=== PATIENT | female | born 1940 | race Caucasian/White ===

== ENCOUNTER 2017-01-07 06:50 | Inpatient (IN) | payer MEDICARE ==
[2017-01-07] VITALS (9 sets, daily range): BP systolic 70–122; BP diastolic 34–78; PULSE 20–135; RESP 2–41; O2SAT 80–100
[~2017-01-07] VITALS: Ht 160 cm; Wt 56.6 kg
--- NOTE | 2017-01-07 07:02 | ED.REPORT ---
HPI-Altered Mental Status Date of Service Jan 07, 2017 ED Provider: Brian Ferguson MD 76 year old female with a history of diabetes, narcotic withdrawal, and AL presents to the ER via EMS due to decreased level of consciousness. GCS of 3 upon EMS arrival at the patient's residence. Medics intubated in the field. EMS report that the patient lives with her who is a poor director of community center; he reports she has been like this for 8 hours. Per medics, patient has vomited and aspirated, and is incontinent of urine. HR 135-140, O2 sat high 80's-low 90's, and hypotensive en route. Full code, no advance directive. Nursing Notes Stated Complaint: DECREASE LOC Nursing Notes Reviewed: Yes Allergies: Coded Allergies: Sulfa (Sulfonamide Antibiotics) (Verified Allergy, Unknown, 01/07/17) baclofen (Verified Allergy, Unknown, 01/07/17) codeine (Verified Allergy, Unknown, 01/07/17) gabapentin (Verified Allergy, Unknown, 01/07/17) pregabalin (Verified Allergy, Unknown, 01/07/17) Scheduled Divalproex (Divalproex) 125 Mg Tablet.dr 125 MG PO DAILY Swallowed whole without chewing to avoid local irritation of the mouth and throat. Insulin Glargine (Lantus U100 Insulin Vial) 100 Unit/Ml Vial Unknown Dose SUBQ HS Lisinopril (Lisinopril) 40 Mg Tablet 40 MG PO DAILY Nortriptyline (Nortriptyline) 10 Mg Capsule 10 MG PO BID Sertraline HCl (Sertraline) 100 Mg Tablet 100 MG PO BID Scheduled PRN Hydrocodone-Acetaminophen 10-300 mg (Hydrocodone-Acetaminophen 10-300 mg) 1 Each Tablet Unknown Dose PO Q4H PRN PRN For Pain Hydroxyzine Pamoate (HydrOXYzine Pamoate) 50 Mg Capsule 50 MG PO HS PRN PRN For Insomnia General Time Seen by MD: 07:01 Chief Complaint Decreased responsiveness Hx Obtained From: EMS Arrived By: Ambulance Sudden in Onset?: No Onset Occurred: 5 - 8 hours ago (8) Symptom Duration: Since onset Progression since Onset: Unchanged Related History: Reports Diabetes mellitus Risk Factors [place] Coma Score > Age 5 Eye Opening: No response (1) Verbal Response: No response (1) Motor Response: No response (1) [place] Coma Score: 3 Past Medical History Past Medical History denies history of CVA Narcotic withdrawal AL Reports: Diabetes mellitus, Hypertension Past Surgical History Open heart surgery 1994 Reports: CABG Smoking History Unknown if Ever Smoker Social History Other Social History: Unable to Obtain History Past medical history Review of Systems Unable to Obtain ROS Intubated Physical Exam Initial Vital Signs Vital Signs (First) Date Time Temp Pulse Resp B/P Pulse Ox O2 Delivery O2 Flow Rate FiO2 01/07/17 07:06 36.8 127 20 121/76 95 Mechanical Ventilator Initial VS: Reviewed General/Constitutional: Well developed Alertness: Positive: Unresponsive Head / Eyes: Atraumatic, Normocephalic Pupils: Positive: Dilated L (fixed), Dilated R (fixed) Neck: No JVD, No tracheal deviation Respiratory / Chest: No chest wall deformity lungs coarse bilateral, intubated, equal Mental Status: Positive: Unresponsive GCS 3 Abdomen: Atraumatic, No guarding, No rebound Back: Atraumatic, Inspection NL, Non-tender, No CVA tenderness No stepoffs Ankle / Foot: Neurologic intact, Vascular intact 1cm chronic ulcer left heel Rectum / Perineum: Blood - occult heme - Rectal for Blood: Negative: Blood, grossly present Interpretation & Diagnostics Lab Results Interpretation Result Diagram: 01/07/17 0710 01/07/17 0710 Test 01/07/17 07:10 01/07/17 07:44 White Blood Count 17.3th/mm3 (3.8-10.1) Red Blood Count 2.90mil/mm3 (3.90-5.20) Hemoglobin 8.5g/dL (12.0-15.6) Hematocrit 28.8% (35.0-46.0) Mean Corpuscular Volume 99.3fL (81-100) Mean Corpuscular Hemoglobin 29.3pg (27.0-35.0) Mean Corpuscular Hemoglobin Concent 29.5% (32.0-37.0) Red Cell Distribution Width 16.1% (12.3-15.4) Platelet Count 366bil/L (150-400) Neutrophils (%) (Auto) 89.7% (40-74) Lymphocytes (%) (Auto) 5.3% (14-46) Monocytes (%) (Auto) 4.3% (4-12) Eosinophils (%) (Auto) 0% (0-5) Basophils (%) (Auto) 0.1% (0-3) Sodium Level 142mEq/L (134-144) Potassium Level 5.1mEq/L (3.5-5.2) Chloride Level 105mEq/L (97-108) Carbon Dioxide Level 18mmol/L (18-29) Blood Urea Nitrogen 27mg/dL (8-27) Creatinine 1.36mg/dL (0.57-1.00) Estimat Glomerular Filtration Rate 54mL/min (>59) Glucose Level 106mg/dL (60-99) Lactic Acid Level 2.5mmol/L (0.4-2.0) Calcium Level 7.8mg/dL (8.5-10.1) Magnesium Level 2.1mg/dL (1.6-2.6) Total Bilirubin 0.2mg/dL (0.0-1.2) Aspartate Amino Transf (AST/SGOT) 48U/L (0-50) Alanine Aminotransferase (ALT/SGPT) 17U/L (0-32) Alkaline Phosphatase 72U/L (25-165) Troponin T 0.707ug/L (0.0-0.011) Total Protein 5.8g/dL (6.4-8.4) Albumin 3.1g/dL (3.4-5.0) Salicylates Level < 3.0ug/mL (30-250) Acetaminophen Level < 15.0ug/mL Rx (10-25) Alcohol, Quantitative < 10mg/dL (0-10) Urine Color Straw (YELLOW) Urine Appearance Slightly cloudy Urine pH 7.0 (5.0-8.0) Urine Specific [place] 1.020 (1.003-1.035) Urine Protein Tracemg/dL (NEG,TRACE) Urine Glucose (UA) Negativemg/dL (NEGATIVE) Urine Ketones 15mg/dL (NEGATIVE) Urine Occult Blood Trace (NEGATIVE) Urine Nitrite Positive (NEGATIVE) Urine Bilirubin Negative (NEGATIVE) Urine Urobilinogen Normalmg/dL (NORMAL) Urine Leukocyte Esterase Large (NEGATIVE) Urine RBC 3-10/hpf (0-2) Urine WBC >50/hpf (0-5) Urine Epithelial Cells Occasional/hpf (NONE-MOD) Urine Crystals None seen (NONE SEEN) Urine Bacteria Many/hpf (NONE-FEW) Urine Hyaline Casts None/lpf (NONE) Urine Granular Casts None seen (NONE SEEN) Urine Waxy Casts None seen (NONE SEEN) Urine Red Blood Cell Casts None seen (NONE SEEN) Urine White Blood Cell Casts None seen (NONE SEEN) Urine Mucus None seen (None Seen) Urine Trichomonas None seen (NONE SEEN) Urine Yeast None (NONE SEEN) Urinalysis Comment None Urine Culture Reflexed Indicated ECG Interpretation ECG Interpretation: sinus tachycardia, rate 130 st depression less than 1mm isolated to v1 Time: 07:25 Interpreted by: ED physician ABG Interpretation ABG Interpretation: pH 7.289 pCO2 44 pO2 116.0 cHCO3 (P) 20.4 cBase (B) -5.3 X-Ray Chest Interpretation Chest Xray Interpretation: IMPRESSION: Asymmetric interstitial radiodensities within the left lung which could be related to atypical pneumonia or asymmetric pulmonary edema. Recommend clinical correlation. Dictated by: Tres Quintana RRA Interpreted: Summer Ssoa MD on 01/07/2017 at 9:08 Transcribed by: KENDALL on 01/07/2017 at 9:09 View: Portable, 1 view Interpretation / Wet Read by: Interpret - Radiologist CT Head Interpretation IMPRESSION: 1. No definite acute intracranial abnormality. 2. Moderate cerebral volume loss and chronic white matter small vessel ischemic changes. Dictated by: William Britt M.D. on 01/07/2017 at 8:12 Approved by: William Britt M.D. on 01/07/2017 at 8:14 Study: Head CT no contrast Interpretation / Wet Read by: Interpret - Radiologist CT C-Spine Interpretation IMPRESSION: 1. No fracture or dislocation. 2. Degenerative disc disease, uncovertebral hypertrophy and facet arthropathy in cervical spine. There is moderate central canal stenosis at C5-C6. 3. Small left pleural effusion. 4. Bilateral apical infiltrate or scarring. 5. Severe atherosclerosis. Dictated by: Summer Sosa M.D. on 01/07/2017 at 9:04 Approved by: Summer Sosa M.D. on 01/07/2017 at 9:12 Study type: CT no contrast Interpretation / Wet Read by: Interpret - Radiologist Procedures Central Line Placement Time: 09:49 Procedure Performed by: ED physician Consent / Setup / Site Prep: Informed consent provided, No consent - emergent, Time-out performed, Needle aspirate performed, Oxygen administered, Pulse oximeter applied, school lunch monitor applied, Hand hygiene observed, Standard surgical scrub, Max barrier precaution, Sterile drapes applied, Position supine Skin Preparation Agent: Hibiclens - Chlorhexidine Side / Location / Ultrasound: Internal jugular right, Ultrasound assisted Catheter / Lumen / Technique: Triple lumen, Seldinger technique, Good blood return, Secured w catheter device Central Line Tip Location: Cath tip good position in the SVC Post-Procedure / Complications: Tolerated procedure well, Patient stable Re-Eval/Medical Decision Med Decision/Clinical Course 76-year-old female history of narcotic withdrawal, DM, AL, CABG presenting with altered mental status 8 hours per . Minimal history available. Patient was intubated in the field for low GCS. CT head no acute pathology. CT C-spine pathology. Lactate is 2.5. White blood cell count elevated. Urine positive nitrites and leukocytes. Chest x-ray possible left-sided infiltrate. Troponins 0.7. Atrial flutter 130s. Patient was given 3 L normal saline and her maps dropped below 65 therefore I put in a central line. She will be admitted to the ICU for altered mental status, elevated troponins, sepsis with urinary and cannot rule out aspiration pneumonia source. Given Vancomycin, Levaquin, Zosyn. She was given 30 mL/kg fluid bolus. She was started on levophed for blood pressure support. Discussed with hospitalist Dr. Pride who will trend troponins and did not recommend heparin drip. Given aspirin for elevated troponins. Possibly demand ischemia given tachycardia though cannot rule out NSTEMI. We will defer further imaging possible MRI to hospitalist team. Cooling measures were discussed given low GCS Dr. Aceves pulmonary recommend no cooling measures at this time. Source of Hx: Old records Re-Evaluation/Progress : Time of Eval: 08:04 Re-Evaluation/Progress Note: Completed rectal exam. Consultation #1: Referral / Consult Name: Michael Pride MD Consulted With: Hospitalist Call Returned at: 08:47 Customer Service Sales Consultant: Agrees with eval, Agrees with plan, Accepts admit Consultation #2: Call Returned at: 09:06 Note: Discussed patient case with her . Counseled Regarding: Diagnosis, Lab results, Need for admission Patient Discharge & Departure Impression: Primary Impression: Altered mental status Additional Impressions: Sepsis Aspiration pneumonia Pyelonephritis Elevated troponin Disposition: ADMITTED TO HOSPITAL Discharge Condition All VS Reviewed: Yes Condition: Critical Crit Care Except Billable Proc Time Spent: 105-134 minutes Services Performed: Patient management by me, Time spent at bedside, Reviewing test results, Reviewing imaging, Discussing patient care, Documentation in record Scribe Attestation Portions of this note were transcribed by Marina Griffin and Luis Angel Damico. I, Dr. Ferguson personally performed the history, physical exam and medical decision-making; I reviewed and confirmed the accuracy of the information in the transcribed note. Signed by: Xavi Green, 01/07/2017 and 10:19 Brian Ferguson MD Jan 07, 2017 07:01 MARINA GRIFFIN Jan 07, 2017 07:14 Luis Angel Damico Jan 07, 2017 07:28
[2017-01-07] MEDS ORDERED: 0.9% Sodium Chloride 1,000 ML IV ONE ×3 (07:19→08:35)
[2017-01-07 07:34] LABS: BASOPHILS % (AUTO) 0.1 % (0-3); EOSINOPHILS % (AUTO) 0 % (0-5); MONOCYTES % (AUTO) 4.3 % (4-12); Mean Corpuscular Hemoglobin 29.3 pg (27.0-35.0); Mean Corpuscular Volume 99.3 fL (81-100); NEUTROPHILS % (AUTO) 89.7 % (40-74); Platelet Count 366 bil/L (150-400)
[2017-01-07] MEDS ORDERED: LISI40TA PO (08:02)
[2017-01-07] MEDS ORDERED: DIVA125T3 PO (08:02)
[2017-01-07] MEDS ORDERED: SERT100T9 PO (08:02)
[2017-01-07] MEDS ORDERED: NORT10CA PO (08:02)
[2017-01-07] MEDS ORDERED: HYDR50CA3 PO (08:02)
[2017-01-07] MEDS ORDERED: HYDR-3089 PO (08:02)
[2017-01-07] MEDS ORDERED: INSU100V7 SUBQ (08:02)
[2017-01-07 08:12] LABS: Magnesium 2.1 mg/dL (1.6-2.6)
--- NOTE | 2017-01-07 08:16 | DRSVH ---
PROCEDURE: CT BRAIN WITHOUT CONTRAST ([id number]) INDICATIONS: dec LOC TECHNIQUE: Noncontrast 4.5 mm thick angled axial sections acquired from the foramen magnum to the vertex, with c oronal reformats. COMPARISON: None. FINDINGS: Image quality: There is mild motion artifact. CSF spaces: Basal cisterns are patent. No extra-axial fluid collections. The ventricles are symmet waldo in size and shape. There is moderate cerebral volume loss, with resultant ventricular and sulcal prominence. Brain: No intracranial hemorrhage, mass, or mass effect. There are subcortical, periventricular and deep white matter hypodensities consistent with moderate chronic small vessel ischemic changes. The re is intracranial internal carotid artery atherosclerosis. Skull and face: Calvarium and visualized facial bones appear intact, without suspicious lesions. Sinuses: Visualized sinuses and mastoids are clear. IMPRESSION: 1. No definite acute intracranial abnormality. 2. Moderate cerebral volume loss and chronic white matter small vessel ischemic changes. Dictated by: William Britt M.D. on 01/07/2017 at 8:12 Approved by: William Britt M.D. on 01/07/2017 at 8:14
[2017-01-07 08:29] LABS: APPEARANCE,URINE SLIGHTLY CLOUDY (CLEAR,HAZY); COLOR,URINE STRAW (YELLOW)
[2017-01-07 08:30] LABS: OCCULT BLOOD,URINE TRACE (NEGATIVE); UROBILINOGEN,URINE NORMAL (NORMAL)
[2017-01-07] MEDS ORDERED: Piperacillin-Tazo 3.375 Gm Inj 3.375 GM in Dextrose 5% Minibag Plus 50 ML IV ONE (08:35)
[2017-01-07] MEDS ORDERED: Vancomycin Dose per Pharmacist XX ONE ×2 (08:35→10:25)
[2017-01-07] MEDS ORDERED: levoFLOXacin Inj 750 MG in IV Premix 1 EACH IV ONE (08:35)
--- NOTE | 2017-01-07 08:39 | ABG ---
DateTimeAnalyzed 08:32:00 -_ pH ____7.289 - 7.350 7.450 pCO2 ___44.0__ -mmHg 35.0 45.0 pO2 116 -mmHg 69.0 116 HCO3- ___20.4__ -mmol/L 22.0 26.0 ABE ___-5.3__ -mmol/L -2.0 2.0 tHb ____8.4__ -g/dL O2Hb ___95.6__ -% COHb ____1.1__ -% MetHb ____1.1__ -% sO2 ___97.8__ -% FIO2 __100.0__ -% Pressure_Support ___10.0__ -cmH2O PEEP ____5.0__ -cmH2O Set_RR ___18.0__ -b/min Vt __450.0__ -L Drawn By kbb - Date/Time Notified____ 08:39:00 -_ Spontaneous_RR ___24.0__ -b/min Oxygen Device 1 VENTILATOR - Notified By kbb - Notified Whom nelson-genao, Brian MD - B 749 -mmHg tO2 ___11.5__ -Vol%
[2017-01-07] MEDS ORDERED: Ondansetron 2 mg/mL 2 mL Inj IVPUSH PRN ×2 (08:50→10:25)
[2017-01-07] MEDS ORDERED: Alum-Mag Hydrox-Simeth 30 mL Suspension PO PRN (08:50)
--- NOTE | 2017-01-07 09:09 | DRSVH ---
PROCEDURE: X-RAY CHEST ONE VIEW, PORTABLE ([id number]) INDICATIONS: altered mental status TECHNIQUE: One view of the chest was acquired. COMPARISON: None. FINDINGS: Surgical changes and devices: Is median sternotomy. Right quadrant surgical clips. Lungs and pleura: Asymmetric radiodensity seen throughout the left lung and the right was clear. No pleural effusion or pneumothorax. Mediastinum: Mediastinal contours appear normal. Heart size is normal. Bones and chest wall: No suspicious bony lesions. Overlying soft tissues appear unremarkable. IMPRESSION: Asymmetric interstitial radiodensities within the left lung which could be related to aty pical pneumonia or asymmetric pulmonary edema. Recommend clinical correlation. Dictated by: Tres NOVAK Interpreted: Summer Sosa MD on 01/07/2017 at 9:08 Transcribed by: KENDALL on 01/07/2017 at 9:09 Approved by: Summer Sosa M.D. on 01/07/2017 at 19:03
[2017-01-07] MEDS ORDERED: Vancomycin Inj 1,000 MG in IV Premix 1 EACH IV ONE (09:10)
--- NOTE | 2017-01-07 09:11 | PCM.CONPHA ---
Subjective Date of Service: Jan 07, 2017 Requesting Provider: Brian Ferguson MD Reason for Pharmacy Consult: Vancomycin Dosing Objective Vital Signs Date Time Temp Pulse Resp B/P Pulse Ox O2 Delivery O2 Flow Rate FiO2 01/07/17 08:32 131 41 99/58 95 Mechanical Ventilator 01/07/17 07:52 100 01/07/17 07:42 36.8 127 20 121/76 95 Mechanical Ventilator 01/07/17 07:35 135 18 122/78 97 Mechanical Ventilator 01/07/17 07:06 36.8 127 20 121/76 95 Mechanical Ventilator Weight (Kilograms): 56.6 Height (Feet): 5 Height (Inches): 3 Test 01/07/17 07:10 01/07/17 07:44 White Blood Count 17.3th/mm3 (3.8-10.1) Red Blood Count 2.90mil/mm3 (3.90-5.20) Hemoglobin 8.5g/dL (12.0-15.6) Hematocrit 28.8% (35.0-46.0) Mean Corpuscular Volume 99.3fL (81-100) Mean Corpuscular Hemoglobin 29.3pg (27.0-35.0) Mean Corpuscular Hemoglobin Concent 29.5% (32.0-37.0) Red Cell Distribution Width 16.1% (12.3-15.4) Platelet Count 366bil/L (150-400) Neutrophils (%) (Auto) 89.7% (40-74) Lymphocytes (%) (Auto) 5.3% (14-46) Monocytes (%) (Auto) 4.3% (4-12) Eosinophils (%) (Auto) 0% (0-5) Basophils (%) (Auto) 0.1% (0-3) Sodium Level 142mEq/L (134-144) Potassium Level 5.1mEq/L (3.5-5.2) Chloride Level 105mEq/L (97-108) Carbon Dioxide Level 18mmol/L (18-29) Blood Urea Nitrogen 27mg/dL (8-27) Creatinine 1.36mg/dL (0.57-1.00) Estimat Glomerular Filtration Rate 54mL/min (>59) Glucose Level 106mg/dL (60-99) Lactic Acid Level 2.5mmol/L (0.4-2.0) Calcium Level 7.8mg/dL (8.5-10.1) Magnesium Level 2.1mg/dL (1.6-2.6) Total Bilirubin 0.2mg/dL (0.0-1.2) Aspartate Amino Transf (AST/SGOT) 48U/L (0-50) Alanine Aminotransferase (ALT/SGPT) 17U/L (0-32) Alkaline Phosphatase 72U/L (25-165) Troponin T 0.707ug/L (0.0-0.011) Total Protein 5.8g/dL (6.4-8.4) Albumin 3.1g/dL (3.4-5.0) Salicylates Level < 3.0ug/mL (30-250) Acetaminophen Level < 15.0ug/mL Rx (10-25) Alcohol, Quantitative < 10mg/dL (0-10) Urine Color Straw (YELLOW) Urine Appearance Slightly cloudy Urine pH 7.0 (5.0-8.0) Urine Specific [place] 1.020 (1.003-1.035) Urine Protein Tracemg/dL (NEG,TRACE) Urine Glucose (UA) Negativemg/dL (NEGATIVE) Urine Ketones 15mg/dL (NEGATIVE) Urine Occult Blood Trace (NEGATIVE) Urine Nitrite Positive (NEGATIVE) Urine Bilirubin Negative (NEGATIVE) Urine Urobilinogen Normalmg/dL (NORMAL) Urine Leukocyte Esterase Large (NEGATIVE) Urine RBC 3-10/hpf (0-2) Urine WBC >50/hpf (0-5) Urine Epithelial Cells Occasional/hpf (NONE-MOD) Urine Crystals None seen (NONE SEEN) Urine Bacteria Many/hpf (NONE-FEW) Urine Hyaline Casts None/lpf (NONE) Urine Granular Casts None seen (NONE SEEN) Urine Waxy Casts None seen (NONE SEEN) Urine Red Blood Cell Casts None seen (NONE SEEN) Urine White Blood Cell Casts None seen (NONE SEEN) Urine Mucus None seen (None Seen) Urine Trichomonas None seen (NONE SEEN) Urine Yeast None (NONE SEEN) Urinalysis Comment None Urine Culture Reflexed Indicated Assessment/Plan Assessment/Plan Vancomycin dosing per pharmacy Indication: aspiration pneumonia. Goal trough: 15-20 Other antibiotics: levofloxacin, Zosyn (all ordered as one time doses in ED). Labs: SCr: 1.36 CrCl: ~30 mL/min Give vancomycin 1000 mg x1 dose now in ED (~17.5 mg/kg). Please reorder vancomycin per pharmacy if vancomycin is to be continued as inpatient. Thank you, Chris Liu Pharmacist Chris Liu Jan 07, 2017 09:11
--- NOTE | 2017-01-07 09:13 | DRSVH ---
PROCEDURE: CT CERVICAL SPINE WITHOUT CONTRAST ([id number]) INDICATIONS: trauma TECHNIQUE: Noncontrast 3 mm thick sections acquired from the skull base to the T4 level. Sagittal and coronal r eformats were then constructed. For radiation dose reduction, the following was used: automated exp osure control, adjustment of mA and/or kV according to patient size. COMPARISON: [facility], CR, XR CHEST 1VW (PORTABLE), 01/07/2017, 7:10. FINDINGS: Image quality: Excellent. Bones: No fractures or dislocations. Visualized superior ribs are intact. There is degenerative di sc disease in cervical spine, moderate at C6-C5-C6 and [id number] at C6-C7. There is moderate c entral canal stenosis at C5-C6. There is uncovertebral hypertrophy at C3-C4, C4-C5, C5-C6 and C6-C7. There bilateral facet arthropathy, most pronounced at C2-C3, C3-C4 and C4-C5 on the left. Soft tissues: Prevertebral soft tissues are normal in thickness. No paravertebral hematomas. No ap ical pneumothoraces. There is a small left pleural effusion. There are bilateral apical infiltrates or scarring. There is extensive atherosclerosis in aorta An endotracheal tube is noted 2 cm above car mayra. IMPRESSION: 1. No fracture or dislocation. 2. Degenerative disc disease, uncovertebral hypertrophy and facet arthropathy in cervical spine. Ther e is moderate central canal stenosis at C5-C6. 3. Small left pleural effusion. 4. Bilateral apical infiltrate or scarring. 5. Severe atherosclerosis. Dictated by: Summer Sosa M.D. on 01/07/2017 at 9:04 Approved by: Summer Sosa M.D. on 01/07/2017 at 9:12
[2017-01-07] MEDS ORDERED: Norepineph 8,000 mCg/250 mL NS 8,000 MCG in IV Premix 1 EACH IV SCH (10:13)
[2017-01-07] MEDS ORDERED: Norepineph 8,000 mCg/250 mL NS 8,000 MCG in IV Premix 1 EACH IV PRN (10:22)
[2017-01-07] MEDS ORDERED: 0.9% Sodium Chloride 1,000 ML IV SCH (10:22)
[2017-01-07] MEDS ORDERED: Acetaminophen IV 1,000 MG in IV Premix 1 EACH IV PRN (10:25)
--- NOTE | 2017-01-07 10:47 | DRSVH ---
PROCEDURE: X-RAY CHEST ONE VIEW, PORTABLE ([id number]) INDICATIONS: post central line & OG tube placement TECHNIQUE: One view of the chest was acquired. COMPARISON: [facility], CR, XR CHEST 1VW (PORTABLE), 01/07/2017, 7:10. FINDINGS: Surgical changes and devices: There is a right IJ central line with the tip in the area of SVC. A job gastric tube is noted with the tip in distal esophagus near the gastroesophageal junction. Sternotomy and CABG. Lungs and pleura: Bilateral interstitial infiltrates consistent with pulmonary edema. There is left basilar density which could represent focal consolidation or atelectasis. No pleural effusion or pneu mothorax. Mediastinum: Mediastinal contours appear normal. Heart size is normal. Bones and chest wall: No suspicious bony lesions. Overlying soft tissues appear unremarkable. IMPRESSION: 1. Right IJ central line tip is in the area of SVC. 2. The tip of the orogastric tube is at the GE junction. 3. Bilateral interstitial infiltrates consistent with pulmonary edema. 4. Possible superimposed pneumonia or atelectasis in the left lower lobe. Dictated by: Summer Sosa M.D. on 01/07/2017 at 10:41 Approved by: Summer Sosa M.D. on 01/07/2017 at 10:45
--- NOTE | 2017-01-07 10:53 | ABG ---
DateTimeAnalyzed 10:47:00 -_ pH ____7.111 - pCO2 ___45.4__ -mmHg pO2 ___50.0__ -mmHg HCO3- ___13.8__ -mmol/L ABE __-14.3__ -mmol/L tHb ____7.5__ -g/dL O2Hb ___66.8__ -% COHb ____0.9__ -% MetHb ____0.9__ -% sO2 ___68.0__ -% FIO2 __100.0__ -% PRVC 400 - PEEP ____5.0__ -cmH2O Set_RR ___18.0__ -b/min Vt __410.0__ -L Drawn By jmw - Date/Time Notified____ 10:52:00 -_ Spontaneous_RR ___18.0__ -b/min Oxygen Device 1 VENTILATOR - Notified By JMW - Notified Whom DR KENDRGEN - B 749 -mmHg tO2 ____7.1__ -Vol% OrderingPhysicianInitials bak - Michael test N/A -
[2017-01-07] MEDS ORDERED: EPINEPHrine 1 mg/mL Inj 10 MG in 0.9% Sodium Chloride 240 ML IV PRN (11:30)
[2017-01-07] MEDS ORDERED: Albumin 25% 50 GM in IV Premix 1 EACH IV STA (11:45)
[2017-01-07 11:47] LABS: BASOPHILS % (AUTO) 0.1 % (0-3); EOSINOPHILS % (AUTO) 0.1 % (0-5); MONOCYTES % (AUTO) 4.5 % (4-12); Mean Corpuscular Hemoglobin 29.9 pg (27.0-35.0); Mean Corpuscular Volume 102.4 fL (81-100); Platelet Count 313 bil/L (150-400)
--- NOTE | 2017-01-07 12:07 | DRSVH ---
[facility] [address] [place] [address] Echocardiogram Report Name: VINNIE MORALES MStudy Date: 2016 Height: 63 in Hospital Exam Location: [facility] Weight: 125 lb Gender: Female BSA: 1.6 m2 : 1940 Age: 76 yrs BP: 95/61 mmHg Reason For Study: CODE BLUE/SHOCK Ordering Physician: HOSPITALIST [facility] Performed By: Carson Shin Referring Physician: Iqra SY Interpretation Summary 1) Normal left ventricular size and thickness with severely reduced systolic function (EF 15-20%). 2) Global hypokinesis that is worse in the distal 2/3 of the myocardium. 3) Grossly normal right ventricular size with mildly reduced function. 4) Mild tricuspid regurgitation. Normal PA pressures. 5) IVC collapses, suggesting low intravascular fluid status. 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 7) No prior Echo available for comparison. Procedure: A two-dimensional transthoracic echocardiogram with color flow and Doppler was performed. The study quality was technically adequate. There is no prior echocardiogram noted for this patient. The patient was mostly supine during the exam. The patient was S/P cardiac arrest. The patient was in normal sinus rhythm during the exam. The patient was tachycardic with a heart rate of 108-118 beats per minute. Left Ventricle: The left ventricle is normal in size. There is normal left ventricular wall thickness. The ejection fraction is estimated to be 15-20%. Global hypokinesis that is worse in the distal 2/3 of the myocardium. Right Ventricle: The right ventricle is not well visualized. The right ventricle is grossly normal size. Right ventricular systolic function is mildly reduced. Atria: The interatrial septum is intact with no evidence for an atrial septal defect. Mitral Valve: There is mild mitral annular calcification. There is mild mitral regurgitation. Aortic Valve: The aortic valve is trileaflet. The aortic valve is mildly calcified. The aortic valve opens well. No aortic regurgitation is present. Tricuspid Valve: The tricuspid valve is not well visualized, but is grossly normal. There is mild tricuspid regurgitation. The right ventricular systolic pressure is estimated at 20 mmHg assuming a right atrial pressure of 3 mm Hg. Great Vessels: The aortic root is normal size. The ascending aorta is mildly enlarged. The pulmonary artery is normal size. The IVC is of normal diameter and collapses greater than 50% with a sniff. This suggests a low right atrial pressure of 3 mm Hg. Pericardium/ Pleura There is no pericardial effusion. There is no pleural effusion. MMode/2D Measurements & Calculations LVIDd: 4.8 cm IVC diam asc Aorta LV plasencia. diameter/BSA LVIDs: 4.3 cm : 1.8 cm Diam: 3.5 cm (cm/m^2): 3.0 FS: 11.0 % IVSd: 0.59 cm LVPWd: 0.68 cm LV sys. diameter/BSA (cm/m^2): 2.7 Doppler Measurements & Calculations TR max beau: 204.9 cm/sec TR max P.8 mmHg Reading Physician:12:06 PM
--- NOTE | 2017-01-07 13:38 | PCM.HPMED ---
Subjective Date of Service Jan 07, 2017 Primary Provider: Admitting Physician: Michael Pride MD Primary Care Physician: Farideh Schilling MD Attending Physician: Michael Pride MD Admit Status: From the Emergency Department, Critical Care Chief Complaint: Acute hypoxemic respiratory failure, decreased level of consciousness, and aspiration secondary to shock due to possible cardiogenic etiology, sepsis, CVA History of Present Illness: Ms. Mclaughlin is a 76 year old woman with a known history of CAD s/p CABG, that was found to be minimally responsive at her home and was intubated in the field. EMS report states GCS decreased from 7 to 3, with witnessed aspiration, and fixed pupils. It is suspected that she may have been down and minimally responsive for > 8 hours. She has been admitted to the CCU for evaluation and treatment of acute hypoxemic respiratory failure possibly secondary to multiple etiologies, including cardiogenic shock, septic shock, CVA, MA, and/or acute hemorrhage. She was transported via EMS from her home, where she resides with her . not present at bedside at time of examination. In the ED, she received 4L NS, central IV access was placed, and she was transported to the CCU in stable condition. Upon arrival to the CCU, she immediately became bradycardic and coded. Multiple rounds of CPR were provided, with appropriate medication administration according to the algorithm, and ROSC was achieved. Additional 1L NS given. Norepi gtt initiated. Stat echo revealed a poorly functioning LV, and dobutamine gtt was started. Epi pushes were also utilized to maintain BP while pressor gtt levels were being achieved. Initial pressor requirements levophed at 0.4, dobutamine 5. Initial labs in ED revealed WBC 17.3, Hb 8.5, Hct 29; Na 142, K 5.1, LA 2.5. Troponin 0.707. Initial ABG pH 7.29/CO2 44/HCO 20; Repeat labs were obtained post-code, results pending at time of this documentation. Initial abx included vancomycin, Levaquin, Zosyn. Review of Systems: ROS could not be obtained; Pt intubated; nonresponsive Allergies Coded Allergies: Sulfa (Sulfonamide Antibiotics) (Verified Allergy, Unknown, 01/07/17) baclofen (Verified Allergy, Unknown, 01/07/17) codeine (Verified Allergy, Unknown, 01/07/17) gabapentin (Verified Allergy, Unknown, 01/07/17) pregabalin (Verified Allergy, Unknown, 01/07/17) Home Medications Unable to verify with patient, family not present at bedside. Obtained from ED note; med rec not yet completed Divalproex (Divalproex) 125 Mg Tablet.dr 125 MG PO DAILY Swallowed whole without chewing to avoid local irritation of the mouth and throat. Insulin Glargine (Lantus U100 Insulin Vial) 100 Unit/Ml Vial Unknown Dose SUBQ HS Lisinopril (Lisinopril) 40 Mg Tablet 40 MG PO DAILY Nortriptyline (Nortriptyline) 10 Mg Capsule 10 MG PO BID Sertraline HCl (Sertraline) 100 Mg Tablet 100 MG PO BID Scheduled PRN Hydrocodone-Acetaminophen 10-300 mg (Hydrocodone-Acetaminophen 10-300 mg) 1 Each Tablet Unknown Dose PO Q4H PRN PRN For Pain Hydroxyzine Pamoate (HydrOXYzine Pamoate) 50 Mg Capsule 50 MG PO HS PRN PRN For Insomnia PMH Obtained from ED documentation; no family present at bedside, no records to review at this time. Patient remains intubated: denies history of CVA Narcotic withdrawal MA Reports: Diabetes mellitus, Hypertension Surgical History Reported: CABG, 1994 Family History Unable to obtain; patient intubated and unresponsive. No chart records to review at time of admission. Social History Occupation: Unknown Hx Alcohol Use: No (Unknown) Hx Substance Use: No (Unknown) Smoking Status: Unknown if Ever Smoker Living Arrangement: with Family (; local) Exam Vital Signs Vital Sign - Last Date Time Temp Pulse Resp B/P Pulse Ox O2 Delivery O2 Flow Rate FiO2 01/07/17 11:08 109 70/49 89 100 01/07/17 09:28 37.8 24 Mechanical Ventilator Exam General: Intubated, no acute distress; unresponsive; thin, frail -appearing HENT: Atraumatic; pupils fixed at 5mm, non-reactive; mucus membranes dry; ETT in place Neck: Trachea midline, soft Cardiac: Tachycardic at time of examination in ED; irregular Respiratory: Ventilated; bilateral coarse sounds at bases Abdomen: Soft, nondistended Extremities: Left foot heel ulceration without erythema or exudate; Left 3-4-5 MTP joint bruising; no edema Skin: Warm, dry Neuro: Pupils fixed, dilated at 5mm; unresponsive Lab and Diagnostics Result Diagram: 01/07/17 1041 01/07/17 0710 Assessment & Plan Ms. Mclaughlin is a 76 year old woman with a known history of CAD s/p CABG, that was found to be minimally responsive at her home and was intubated in the field. EMS report states GCS decreased from 7 to 3, with witnessed aspiration, and fixed pupils. It is suspected that she may have been down and minimally responsive for > 8 hours. She has been admitted to the CCU for evaluation and treatment of acute hypoxemic respiratory failure possibly secondary to multiple etiologies, including cardiogenic shock, septic shock, CVA, MA, and/or acute hemorrhage. - Hospital day 1 - Ventilator day 1 Acute hypoxemic respiratory failure, present on admission. Ongoing - Ventilated in field - Treat underlying causes Altered mental status, acute, present on admission. Ongoing - EMS reports decline in GCS from 7 to 3 - Stat CT brain wo contrast: No acute intracranial abnormality - Cervical CT: No fracture/dislocation - Consideration of stroke MRI when stabilized Septic shock, acute, present on admission. Ongoing - On admit: LA 6.0, WBC 17.3 - s/p 5L NS - Norepi + dobutamine gtt initiated; adjust prn - Treat underlying cause(s) - Ordered: PCT, BCx, UCx Cardiogenic shock, acute, present on admission. Ongoing - Stat echo: EF15-20, global hypokinesis - Dobutamine as above - Treat underlying cause(s); likely secondary to sepsis Elevated troponin of unknown significance, likely acute, present on admission. Monitored - On admit: 0.707 - Trend troponin Suspected UTI, acute, present on admission. Ongoing - On admit: UA Cloudy, + nitrites, many bacteria, large leuk est, > 50 WBC - Initial Abx: Vanco, Zosyn, Levaquin - Await Cx Suspected PNA, acute, present on admission. Ongoing - Reported to have aspirated prior to arrival - CXR: Left lung opacities - Initial Abx: Vanco, Zosyn, Levaquin - Ordered" Strep pneu Ur, Legionella Ur Acute kidney injury, present on admission. Ongoing - On admit: Cr 1.38 - Avoid nephrotoxic meds - Hydrated Metabolic acidosis, acute, present on admission. Ongoing - On admit: AG 20 - Likely secondary to above - Treat underlying causes Suspected GI bleed, acute, present on admission. Ongoing - + heme upper GI - Pantoprazole 40mg IV pushes BID - Plan to trend H/H with consideration of dilution with fluid resuscitation - GI: PPI - DVT: SCDs only, suspected bleed at time of admission - Diet: NPO - PRN bowel/fever/antiemetic/pain - CODE: FULL CODE at time of admission; stated by Patient status: Due to severity of presenting symptoms, risk of adverse events, and likely course of care, patient admitted to CCU for continued care. Anticipated LOS > 2 days. Guarded prognosis at time of admission. Pain Evaluation: Adequate Pain Control GI Prophylaxis: Proton Pump Inhibitor VTE Prophylaxis: SCDs Resuscitation Status: CPR: Attempt Resuscitation Time spent 90 minutes Attending Statement Patient seen and examined with house staff, agree with all attached documentation Roxanna Palmer DO Jan 07, 2017 12:19 Michael Pride MD Jan 07, 2017 18:37
--- NOTE | 2017-01-07 16:02 | NUR ---
PATIENT Report received from TK Pinto in ED. Patient arrived to unit w/ RNs x2 and RT at bedside. BP stable, and HR in 110s-120s upon arrival. While attempting to transfer patient from stretcher to bed, she experienced bradycardia into 30s, no pulse found, code blue called, and compressions started. Code Blue from 1032 to 1054, but resuscitation/maintenance w/ Levophed, Dobutamine and Epinephrine gtt required until time of at 1307. notified of patient status, Dr. Rivas obtained permission from to change patient to DNR/DNI. Unable to maintain MAP >50, despite fluid resuscitation and pressors, received order to withdraw care on patient. Pressors discontinued at 1304, patient extubated at 1305, asystole noted at 1307. [facility] notified, patient not a candidate for donation. Patient's notified of by . Addendum: 01/07/17 at 1622 by AARON LUNDY RN Unable to complete admit and full assessment d/t code situation, continuous resuscitation, and no family present at time of admission.
[2017-01-07] MEDS ORDERED: Piperacillin-Tazo 3.375 Gm Inj 3.375 GM in Dextrose 5% Minibag Plus 50 ML IV SCH (16:30)
[2017-01-07] MEDS ORDERED: Pantoprazole 4 mg/mL 10 mL Inj IVPUSH SCH (16:30)
--- NOTE | 2017-01-07 16:51 | PCM.DC.MED ---
Discharge Summary Date of Service Jan 07, 2017 Dates of Hospitalization Date of Hospital Admission Jan 07, 2017 at 09:06 Date of Discharge: Jan 07, 2017 Providers: Admitting Physician: Michael Pride MD Primary Care Physician: Farideh Schilling MD Attending Physician: Michael Pride MD Diagnosis at Time of Discharge Diagnosis at Time of Discharge 1.Expiration 2. Acute hypoxemic respiratory failure, present on admission. . 3. Septic encephalopathy 4. Septic shock, present on admission. 5. Cardiogenic shock, acute, present on admission. 6. Elevated troponin of unknown significance, likely acute, present on admission. 7. Suspected pyelonephritis, acute, present on admission. 8. Suspected PNA, acute, present on admission. 9. Acute kidney injury, present on admission. 10. Metabolic acidosis, acute, present on admission. 11. Suspected GI bleed, acute, present on admission. Consultations Pulmonary/ ICU Procedures XRay, CTs & MRIs PROCEDURE: CT BRAIN WITHOUT CONTRAST ([id number]) IMPRESSION: 1. No definite acute intracranial abnormality. 2. Moderate cerebral volume loss and chronic white matter small vessel ischemic changes. Dictated by: William Britt M.D. on 01/07/2017 at 8:12 Approved by: William Britt M.D. on 01/07/2017 at 8:14 Caution: Report not yet finalized and possibly incomplete! PROCEDURE: X-RAY CHEST ONE VIEW, PORTABLE ([id number]) IMPRESSION: Asymmetric interstitial radiodensities within the left lung which could be related to atypical pneumonia or asymmetric pulmonary edema. Recommend clinical correlation. Dictated by: Tres NOVAK Interpreted: Summer Sosa MD on 01/07/2017 at 9:08 Transcribed by: KENDALL on 01/07/2017 at 9:09 PROCEDURE: CT CERVICAL SPINE WITHOUT CONTRAST ([id number]) IMPRESSION: 1. No fracture or dislocation. 2. Degenerative disc disease, uncovertebral hypertrophy and facet arthropathy in cervical spine. There is moderate central canal stenosis at C5-C6. 3. Small left pleural effusion. 4. Bilateral apical infiltrate or scarring. 5. Severe atherosclerosis. Dictated by: Summer Sosa M.D. on 01/07/2017 at 9:04 Approved by: Summer Sosa M.D. on 01/07/2017 at 9:12 PROCEDURE: X-RAY CHEST ONE VIEW, PORTABLE ([id number]) IMPRESSION: 1. Right IJ central line tip is in the area of SVC. 2. The tip of the orogastric tube is at the GE junction. 3. Bilateral interstitial infiltrates consistent with pulmonary edema. 4. Possible superimposed pneumonia or atelectasis in the left lower lobe. Dictated by: Summer Sosa M.D. on 01/07/2017 at 10:41 Approved by: Summer Sosa M.D. on 01/07/2017 at 10:45 ECG 12 Lead Sinus tachycardia with right bundle branch block Cardiac Echo Impression Interpretation Summary 1) Normal left ventricular size and thickness with severely reduced systolic function (EF 15-20%). 2) Global hypokinesis that is worse in the distal 2/3 of the myocardium. 3) Grossly normal right ventricular size with mildly reduced function. 4) Mild tricuspid regurgitation. Normal PA pressures. 5) IVC collapses, suggesting low intravascular fluid status. 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 7) No prior Echo available for comparison. Reading Physician:12:06 PM Invasive Procedures Placement of right IJ line for fluid resuscitation and endotracheal intubation both of the above procedures in the ED Brief History History obtained from admission note dated 01/07/2017, written by Dr. Roxanna Palmer: Ms. Mclaughlin is a 76 year old woman with a known history of CAD s/p CABG, that was found to be minimally responsive at her home and was intubated in the field. EMS report states GCS decreased from 7 to 3, with witnessed aspiration, and fixed pupils. It is suspected that she may have been down and minimally responsive for > 8 hours. She has been admitted to the CCU for evaluation and treatment of acute hypoxemic respiratory failure possibly secondary to multiple etiologies, including cardiogenic shock, septic shock, CVA, AK, and/or acute hemorrhage. She was transported via EMS from her home, where she resides with her . not present at bedside at time of examination. In the ED, she received 4L NS, central IV access was placed, and she was transported to the CCU in stable condition. Upon arrival to the CCU, she immediately became bradycardic and coded. Multiple rounds of CPR were provided, with appropriate medication administration according to the algorithm, and ROSC was achieved. Additional 1L NS given. Norepi gtt initiated. Stat echo revealed a poorly functioning LV, and dobutamine gtt was started. Epi pushes were also utilized to maintain BP while pressor gtt levels were being achieved. Initial pressor requirements levophed at 0.4, dobutamine 5. Initial labs in ED revealed WBC 17.3, Hb 8.5, Hct 29; Na 142, K 5.1, LA 2.5. Troponin 0.707. Initial ABG pH 7.29/CO2 44/HCO 20; Repeat labs were obtained post-code, results pending at time of this documentation. Initial abx included vancomycin, Levaquin, Zosyn. Hospital Course Ms. Mclaughlin is a 76 year old woman with a known history of CAD s/p CABG, that was found to be minimally responsive at her home and was intubated in the field. EMS report states GCS decreased from 7 to 3, with witnessed aspiration, and fixed pupils. It is suspected that she may have been down and minimally responsive for > 8 hours. She has been admitted to the CCU for evaluation and treatment of acute hypoxemic respiratory failure possibly secondary to multiple etiologies, including cardiogenic shock, septic shock, CVA, AK, and/or acute hemorrhage. - Hospital day total: 1 - Ventilator day total: 1 Upon arrival to the CCU, patient had coded, and required multiple rounds of CPR and medications per algorithm. ROSC was achieved. Norepi, dobutamine, with supplemental epi pushes. After continued inability to maintain BP, MAP, family was contacted via telephone, code status changed to DNR/DNI, with no wishes for further/continued attempts at CPR. It was decided at that time to no longer continue to code the patient, and the decision was made to compassionately extubate. Extubated at 1305. Patient soon at 1307. No family at bedside. Attempts to contact were made by critical care team; call returned to hospital at 1521. 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 Many laboratory values and studies were pending at time of extubation. Diagnoses at time of include: Acute hypoxemic respiratory failure, present on admission. Ongoing - Ventilated in field - Treat underlying causes Altered mental status, acute, present on admission. Ongoing - EMS reports decline in GCS from 7 to 3 - Stat CT brain wo contrast: No acute intracranial abnormality - Cervical CT: No fracture/dislocation - Consideration of stroke MRI when stabilized Septic shock, acute, present on admission. Ongoing - On admit: LA 6.0, WBC 17.3 - s/p 5L NS - Norepi + dobutamine gtt initiated; adjust prn - Treat underlying cause(s) - Ordered: PCT, BCx, UCx Cardiogenic shock, acute, present on admission. Ongoing - Stat echo: EF15-20, global hypokinesis - Dobutamine as above - Treat underlying cause(s); likely secondary to sepsis Elevated troponin of unknown significance, likely acute, present on admission. Monitored - On admit: 0.707 - Trend troponin Suspected UTI, acute, present on admission. Ongoing - On admit: UA Cloudy, + nitrites, many bacteria, large leuk est, > 50 WBC - Initial Abx: Vanco, Zosyn, Levaquin - Await Cx Suspected PNA, acute, present on admission. Ongoing - Reported to have aspirated prior to arrival - CXR: Left lung opacities - Initial Abx: Vanco, Zosyn, Levaquin - Ordered" Strep pneu Ur, Legionella Ur Acute kidney injury, present on admission. Ongoing - On admit: Cr 1.38 - Avoid nephrotoxic meds - Hydrated Metabolic acidosis, acute, present on admission. Ongoing - On admit: AG 20 - Likely secondary to above - Treat underlying causes Suspected GI bleed, acute, present on admission. Ongoing - + heme upper GI - Pantoprazole 40mg IV pushes BID Hospital course- patient presented to the ED with sepsis and hypotension. She was intubated in the field for altered mental status and fluid resuscitated. In the ED central line was placed for fluid resuscitation and probable pressors. She was admitted to the CCU. Upon being transferred to the room she developed an acute bradycardia and became pulseless. She then went into an asystolic rhythm. Resuscitation Efforts ensued. She was treated with CPR and epinephrine repeatedly and ultimately Kenn had a return of spontaneous circulation. She required ongoing boluses of epinephrine and then was then placed on vasopressors. If in spite of these efforts she continued to deteriorate clinically. A bedside echo indicated severe hypokinesis and dysfunction of the ventricle. It was felt that after thereafter to be futile. Conversation was held with the who agreed to treat her for comfort. She was then placed in morphine and extubated and within a very short time. Exam Vital Signs (Last) Date Time Temp Pulse Resp B/P Pulse Ox O2 Delivery O2 Flow Rate FiO2 01/07/17 11:08 109 70/49 89 100 01/07/17 09:28 37.8 24 Mechanical Ventilator Exam General: Intubated, no acute distress; unresponsive; thin, frail -appearing HENT: Atraumatic; pupils fixed at 5mm, non-reactive; mucus membranes dry Neck: Trachea midline, soft Cardiac: No cardiac tones present Respiratory: No breath sounds or movement Abdomen: Soft, nondistended Extremities: Left foot heel ulceration without erythema or exudate; Left 3-4-5 MTP joint bruising; no edema Skin: Cool, dry Neuro: Pupils fixed, dilated at 5mm; unresponsive Test 01/07/17 07:10 01/07/17 07:33 01/07/17 07:44 01/07/17 10:41 Troponin T 0.707ug/L (0.0-0.011) Salicylates Level < 3.0ug/mL (30-250) Acetaminophen Level < 15.0ug/mL Rx (10-25) Alcohol, Quantitative < 10mg/dL (0-10) Urine Legionella pneumophilia Ag Negative (Negative) Urine Color Straw (YELLOW) Urine Appearance Slightly cloudy Urine pH 7.0 (5.0-8.0) Urine Specific [place] 1.020 (1.003-1.035) Urine Protein Tracemg/dL (NEG,TRACE) Urine Glucose (UA) Negativemg/dL (NEGATIVE) Urine Ketones 15mg/dL (NEGATIVE) Urine Occult Blood Trace (NEGATIVE) Urine Nitrite Positive (NEGATIVE) Urine Bilirubin Negative (NEGATIVE) Urine Urobilinogen Normalmg/dL (NORMAL) Urine Leukocyte Esterase Large (NEGATIVE) Urine RBC 3-10/hpf (0-2) Urine WBC >50/hpf (0-5) Urine Epithelial Cells Occasional/hpf (NONE-MOD) Urine Crystals None seen (NONE SEEN) Urine Bacteria Many/hpf (NONE-FEW) Urine Hyaline Casts None/lpf (NONE) Urine Granular Casts None seen (NONE SEEN) Urine Waxy Casts None seen (NONE SEEN) Urine Red Blood Cell Casts None seen (NONE SEEN) Urine White Blood Cell Casts None seen (NONE SEEN) Urine Mucus None seen (None Seen) Urine Trichomonas None seen (NONE SEEN) Urine Yeast None (NONE SEEN) Urinalysis Comment None Urine Culture Reflexed Indicated White Blood Count 18.6th/mm3 (3.8-10.1) Red Blood Count 2.51mil/mm3 (3.90-5.20) Hemoglobin 7.5g/dL (12.0-15.6) Hematocrit 25.7% (35.0-46.0) Mean Corpuscular Volume 102.4fL (81-100) Mean Corpuscular Hemoglobin 29.9pg (27.0-35.0) Mean Corpuscular Hemoglobin Concent 29.2% (32.0-37.0) Red Cell Distribution Width 15.7% (12.3-15.4) Platelet Count 313bil/L (150-400) Neutrophils (%) (Auto) 78.0% (40-74) Lymphocytes (%) (Auto) 16.3% (14-46) Monocytes (%) (Auto) 4.5% (4-12) Eosinophils (%) (Auto) 0.1% (0-5) Basophils (%) (Auto) 0.1% (0-3) Hold Purple Top Tube Received (Received) Hold Blue Top Tube Received (Received) Sodium Level 143mEq/L (134-144) Potassium Level 5.4mEq/L (3.5-5.2) Chloride Level 111mEq/L (97-108) Carbon Dioxide Level 12mmol/L (18-29) Blood Urea Nitrogen 25mg/dL (8-27) Creatinine 1.38mg/dL (0.57-1.00) Estimat Glomerular Filtration Rate 53mL/min (>59) Glucose Level 201mg/dL (60-99) Lactic Acid Level 6.0mmol/L (0.4-2.0) Calcium Level 6.1mg/dL (8.5-10.1) Magnesium Level 2.0mg/dL (1.6-2.6) Total Bilirubin 0.3mg/dL (0.0-1.2) Aspartate Amino Transf (AST/SGOT) 639U/L (0-50) Alanine Aminotransferase (ALT/SGPT) 398U/L (0-32) Alkaline Phosphatase 65U/L (25-165) Total Protein 4.8g/dL (6.4-8.4) Albumin 2.4g/dL (3.4-5.0) Hold [place] Top Tube Received (Received) Test 01/07/17 11:08 Hold [place] Top Tube Received (Received) Discharge Medications Discharge Medications Divalproex (Divalproex) 125 Mg Tablet.dr 125 MG PO DAILY (Reported) Swallowed whole without chewing to avoid local irritation of the mouth and throat. Insulin Glargine (Lantus U100 Insulin Vial) 100 Unit/Ml Vial Unknown Dose SUBQ HS (Reported) Lisinopril (Lisinopril) 40 Mg Tablet 40 MG PO DAILY (Reported) Nortriptyline (Nortriptyline) 10 Mg Capsule 10 MG PO BID (Reported) Sertraline HCl (Sertraline) 100 Mg Tablet 100 MG PO BID (Reported) As needed Hydrocodone-Acetaminophen 10-300 mg (Hydrocodone-Acetaminophen 10-300 mg) 1 Each Tablet Unknown Dose PO Q4H PRN PRN For Pain (Reported) Hydroxyzine Pamoate (HydrOXYzine Pamoate) 50 Mg Capsule 50 MG PO HS PRN PRN For Insomnia (Reported) Followup Plan Disposition: Time of : Time spent 60 minutes Roxanna Palmer DO Jan 07, 2017 13:47 Michael Pride MD Jan 07, 2017 18:42
--- NOTE | 2017-01-07 17:26 | PCM.CHPMED ---
Subjective Date of Service: Jan 07, 2017 Primary Physician: Admitting Physician: Michael Pride MD Primary Care Physician: Farideh Schilling MD Attending Physician: Michael Pride MD Admit Status: From the Emergency Department Chief Complaint: Chief Complaint: Sepsis and cardiac arrest History of Present Illness: History of present illness taking from Dr. Dorota Palmer's admit note Ms. Mclaughlin is a 76 year old woman with a known history of CAD s/p CABG, that was found to be minimally responsive at her home and was intubated in the field. EMS report states GCS decreased from 7 to 3, with witnessed aspiration, and fixed pupils. It is suspected that she may have been down and minimally responsive for > 8 hours. She has been admitted to the CCU for evaluation and treatment of acute hypoxemic respiratory failure possibly secondary to multiple etiologies, including cardiogenic shock, septic shock, CVA, MA, and/or acute hemorrhage. She was transported via EMS from her home, where she resides with her . not present at bedside at time of examination. In the ED, she received 4L NS, central IV access was placed, and she was transported to the CCU in stable condition. Upon arrival to the CCU, she immediately became bradycardic and coded. Multiple rounds of CPR were provided, with appropriate medication administration according to the algorithm, and ROSC was achieved. Additional 1L NS given. Norepi gtt initiated. Stat echo revealed a poorly functioning LV, and dobutamine gtt was started. Epi pushes were also utilized to maintain BP while pressor gtt levels were being achieved. Initial pressor requirements levophed at 0.4, dobutamine 5. Initial labs in ED revealed WBC 17.3, Hb 8.5, Hct 29; Na 142, K 5.1, LA 2.5. Troponin 0.707. Initial ABG pH 7.29/CO2 44/HCO 20; Repeat labs were obtained post-code, results pending at time of this documentation. Initial abx included vancomycin, Levaquin, Zosyn. Review of Systems: Complete review of systems unable to be performed due to ongoing cardiac arrest. PMH Past Medical History Obtained from ED documentation; no family present at bedside, no records to review at this time. Patient remains intubated: denies history of CVA Narcotic withdrawal MA Reports: Diabetes mellitus, Hypertension Hx Any Other Health Problems?: YesHx Diabetes: Yes Surgical History CABG x 1994 Home Medications Unable to verify with patient, family not present at bedside. Obtained from ED note; med rec not yet completed Divalproex (Divalproex) 125 Mg Tablet.dr 125 MG PO DAILY Swallowed whole without chewing to avoid local irritation of the mouth and throat. Insulin Glargine (Lantus U100 Insulin Vial) 100 Unit/Ml Vial Unknown Dose SUBQ HS Lisinopril (Lisinopril) 40 Mg Tablet 40 MG PO DAILY Nortriptyline (Nortriptyline) 10 Mg Capsule 10 MG PO BID Sertraline HCl (Sertraline) 100 Mg Tablet 100 MG PO BID Scheduled PRN Hydrocodone-Acetaminophen 10-300 mg (Hydrocodone-Acetaminophen 10-300 mg) 1 Each Tablet Unknown Dose PO Q4H PRN PRN For Pain Hydroxyzine Pamoate (HydrOXYzine Pamoate) 50 Mg Capsule 50 MG PO HS PRN PRN For Insomnia Allergies: Coded Allergies: Sulfa (Sulfonamide Antibiotics) (Verified Allergy, Unknown, 01/07/17) baclofen (Verified Allergy, Unknown, 01/07/17) codeine (Verified Allergy, Unknown, 01/07/17) gabapentin (Verified Allergy, Unknown, 01/07/17) pregabalin (Verified Allergy, Unknown, 01/07/17) Family History Family History Unable to obtain; patient intubated and unresponsive. No chart records to review at time of admission. Social History Occupation: Unknown Hx Alcohol Use: No (Unknown)Hx Substance Use: No (Unknown) Smoking Status: Unknown if Ever Smoker Living Arrangement: with Family (; local) Exam Vital Signs Vital Sign - Last Date Time Temp Pulse Resp B/P Pulse Ox O2 Delivery O2 Flow Rate FiO2 01/07/17 13:05 20 2 Room Air 01/07/17 13:00 73/34 80 100 01/07/17 09:28 37.8 Additional Information: On arrival patient is unresponsive with a witnessed bradycardia proceeding to asystole. Blood pressures are tenuous and comfort cardiac arrest was initiated once patient was brought to the floor and transferred to her hospital bed. Pupils were fixed and dilated at 5 mm. Lab and Diagnostics Result Diagram: 01/07/17 1041 01/07/17 1041 X-Rays, CTs and MRIs Chest x-ray IMPRESSION: 1. Right IJ central line tip is in the area of SVC. 2. The tip of the orogastric tube is at the GE junction. 3. Bilateral interstitial infiltrates consistent with pulmonary edema. 4. Possible superimposed pneumonia or atelectasis in the left lower lobe. Dictated by: Summer Sosa M.D. on 01/07/2017 at 10:41 Assessment & Plan Assessment On arrival to the ICU, after transferring beds, there was bradycardia to asystole witnessed by nursing staff. Immediately CPR was initiated and CODE BLUE was called. Patient was effectively resuscitated using CPR and epinephrine , already being intubated from the emergency department. Turn a spontaneous circulation was achieved after approximately 10 minutes of CPR and medications. Blood pressure was 80s over 40s, heart rate was in the 80s, and 2 L of normal saline and norepinephrine was initiated through central line. Patient's vitals were tenuous at best, and 50 g of epinephrine push every 5 minutes was required to maintain heart rate and blood pressure. After 5-10 minutes of norepinephrine and epinephrine patient's blood pressure became more stable with maps in the 60s to 70s and heart rate in the 110's. Echocardiogram was ordered to bedside assessment of left ventricular function revealed a globally hypokinetic ventricle with no septal movement. MAP at this time with the 40s. Dobutamine was ordered and started and titrated to effect. Norepinephrine was also titrated up to effect. During this time 50 g of epinephrine were required in addition to dobutamine and norepinephrine to maintain patient's blood pressure. Epinephrine drip was ordered and hung along with the norepinephrine and dobutamine. After titrating the epinephrine to 0.3 g/kg/ min the patient continued with MAPs in the mid to high 40s. Discussion was had with her William Carrero over the phone and he stated that he did not wish for the patient to be resuscitated again. Exam of the patient at this time was unchanged with pupils fixed and dilated at 5-6 mm. Patient showed cyanosis in her fingers. On course of approximately 2 hours of maximal medical treatment, and after discussion with the , care was withheld and patient at 1307. Multiple attempts were made to contact the , however he is very difficult to reach. 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 Time spent: 180 minutes Problems: Pain Evaluation: Adequate Pain Control GI Prophylaxis: Proton Pump Inhibitor VTE Prophylaxis: SCDs Resuscitation Status: CPR: Attempt Resuscitation Attending Statement The patient was seen and examined together with Dr. Rivas on 01/07/2017 and I agree with the history, exam and plan as outlined in the note above. Lukasz Rivas DO Jan 07, 2017 17:26 Josafat Post MD Jan 31, 2017 09:00
[2017-01-08] MEDS ORDERED: Vancomycin Serum Trough XX ONE (05:00)
[2017-01-08] MEDS ORDERED: Vancomycin Dose per Pharmacist XX SCH (08:30)
[2017-01-08] MEDS ORDERED: levoFLOXacin Inj 750 MG in IV Premix 1 EACH IV SCH (08:30)
== END 2017-01-07 13:07 | disposition expired | DRG 871 ==
LOC: SED 06:50 → CCU 09:06
PROVIDERS: ADMIT Hospitalist; ATTEND Hospitalist
PROC: 4A033R1 Measurement of Arterial Saturation, Peripheral, Percutaneous Approach (ICD-10-PCS; principal; 2017-01-07)
PROC: 5A1935Z Respiratory Ventilation, Less than 24 Consecutive Hours (ICD-10-PCS; 2017-01-07)
DX: A41.9 Sepsis, unspecified organism (principal); J69.0 Pneumonitis due to inhalation of food and vomit; J96.01 Acute respiratory failure with hypoxia; R65.21 Severe sepsis with septic shock; G93.41 Metabolic encephalopathy; N17.9 Acute kidney failure, unspecified; E87.2 Acidosis; N39.0 Urinary tract infection, site not specified; K92.2 Gastrointestinal hemorrhage, unspecified; E11.9 Type 2 diabetes mellitus without complications; I25.10 Atherosclerotic heart disease of native coronary artery without angina pectoris; Z95.1 Presence of aortocoronary bypass graft; I10 Essential (primary) hypertension; Z66 Do not resuscitate